=== PATIENT | female | born 1990 | race Asian ===

== ENCOUNTER 2021-07-28 03:59 | Emergency (ER) | payer SELFPAY ==
[~2021-07-28] VITALS: Ht 165.1 cm; Wt 61.2 kg
[2021-07-28] MEDS ORDERED: KETOROLAC TROMETHAMINE 30 MG VIAL IVP ONE (04:30)
[2021-07-28] MEDS ORDERED: NACL 0.9% 1,000 ML IV ONE (04:30)
[2021-07-28 04:42] LABS: BILIRUBIN,URINE NEGATIVE (NEGATIVE); BLOOD, URINE NEGATIVE (NEGATIVE); CLARITY/URINE CLEAR (CLEAR); COLOR,URINE YELLOW (YELLOW); GLUCOSE,URINE NEGATIVE (NEGATIVE); KETONES,URINE TRACE (NEGATIVE); LEUKOCYTE ESTERASE ,URINE NEGATIVE (NEGATIVE); NITRITE, URINE NEGATIVE (NEGATIVE); PH,URINE 5.5 (5.0-8.0); PROTEIN URINE NEGATIVE (NEGATIVE); UROBILINOGEN,URINE 0.2 (0.2-1.0)
[2021-07-28 04:57] LABS: WHITE BLOOD COUNT (AUTO) 8.8 K/uL (4.8-10.8)
[2021-07-28 04:59] VITALS: BP_SYST 123
[2021-07-28 05:01] LABS: BASOPHILS # (AUTO) 0.1 K/uL (0.0-0.2); BASOPHILS % (AUTO) 0.6 % (0.0-2.0); CALCIUM 8.1 mg/dL (8.4-11.0); CREATININE 0.48 mg/dL (0.55-1.30); EOSINOPHILS # (AUTO) 0.5 K/uL (0.0-0.4); EOSINOPHILS % (AUTO) 5.5 % (0.0-4.0); HEMATOCRIT 38.6 % (36-48); HEMOGLOBIN 13.5 g/dL (12.0-16.0); LYMPHOCYTES % (AUTO) 22.3 % (20.5-51.5); MEAN CORPUSCULAR HEMOGLOBIN 30 pg (27-31); MEAN CORPUSCULAR HGB CONC 35 % (32-36); MEAN CORPUSCULAR VOLUME 86 fL (79.0-98.0); MONOCYTES # (AUTO) 0.3 K/uL (0.0-1.0); MONOCYTES % (AUTO) 3.4 % (1.7-9.3); NEUTROPHILS % (AUTO) 68.2 % (40.0-70.0); PLATELET COUNT (AUTO) 195 K/uL (130-430); POTASSIUM 3.2 mmol/L (3.5-5.1); RED BLOOD CELL COUNT(AUTO) 4.46 MIL/uL (4.2-6.2); RED CELL DISTRIBUTION WIDTH 11.9 % (9.0-15.0)
[2021-07-28 05:06] LABS: ALBUMIN 3.5 g/dL (3.4-4.8); TOTAL BILIRUBIN 0.3 mg/dL (0.0-1.0)
[2021-07-28] MEDS ORDERED: NAPR-1172 PO (06:51)
[2021-07-28 06:55] VITALS: BP_SYST 127
== END 2021-07-28 06:38 | disposition home or self-care (01) ==
LOC: SED 03:59
DX: N83.201 Unspecified ovarian cyst, right side (principal); Z79.899 Other long term (current) drug therapy
CPT/HCPCS: 36415; 74176; 76376; 76830; 76857; 80053; 81003; 81025; 83605; 85025; 87040; 87210; 96361; 96374; 99284; J1885; J7030